=== PATIENT | male | born 1980 | race Hispanic/Latino ===

== ENCOUNTER 2023-07-08 13:50 | Emergency (ER) | payer OTHER ==
--- OUTSIDE RECORDS SUMMARY | 2023-07-08 13:58 | XMS REPORT | Continuity of Care Document ---
:1980 Author Organization [facility] t Address [address] [facility] [address] [place] [address] Care Team Providers Name Role Phone PCP, PATIENT DOES NOT HAVE A Primary Care Physician Unavaila Kelsi Lowery Attending Clinician Unavailable Kelsi Diallo Attending Clinician Flaco Bishop Attending Clinician FLACO LESTER Attending Clinician Unavailable Payers Payer Name Policy Type Policy Number Effective Date Expiration Date S eleuterio [facility] [id number] 2022 HEALTHCARE 00:00:00 Problems Condition Condition Condition Status Onset Resolution Last Treating Co mments Source Name Details Category Date Date Treatment Clinician Date No known No known Disease Unive rs active active ity of problems problems [facility] [place] Allergies, Adverse Reactions, Alerts Allergy Allergy Status Severity Reaction(s) Onset Inactive Treating Comm ents Source Name Type Date Date Clinician NO KNOWN Drug Active Univers ALLERGIE Class ity of S [facility] [place] Social History Social Habit Start Date Stop Date Quantity Comments Source Exposure to 2022-12-16 2022-12-26 Not sure [facility] SARS-CoV-2 (event) 00:00:00 13:30:00 Medica l Branch Sex Ass[birth year] [facility] 00:00:00 00:00:00 Medical Branch Smoking Status Start Date Stop Date Source Tobacco smoking consumption Univ [facility] Medical unknown Branch Medications Ordered Filled Start Stop Current Ordering Indication Dosage Frequency Signature Comments Components Source Medication Medication Date Date Medication? Clinician (SIG) Name Name acetaminoph 2022- No 1000mg 1,000 mg, Univers en 12-26 Oral, ity of (TYLENOL) 21:30: 21:32 ONCE, 1 [place] tablet [place] :[place] dose, On Medical 1,000 mg Fri Branch 12/26/22 at 1530, SUMAN benzonatate 0 Yes [id number] 200mg Take 1 Univers 200 mg 12-26 capsule by ity of capsule 00:00: mouth 3 [place] 00 (three) Medical times Branch daily as needed for Cough for up to 20 doses. ondansetron Yes [id number] 4mg Take 1 Univers 4 mg -27 tablet by ity of disintegrat 00:00: mouth [place] ing tablet 00 every 8 Medica l (eight) Branch hours as needed for Nausea and Vomiting (N/V). ibuprofen 0 Yes [id number] 600mg Take 1 Univers 600 mg -27 tablet by ity of tablet 00:00: mouth [place] 00 every 6 Medical (six) Branch hours as needed for Pain (scale 4-6). sulfamethox Yes [id number] 1{tbl} Take 1 Univers azole-trime 6-08 tablet by ity of thoprim 00:00: mouth [place] 800-160 mg 00 every 12 Medic al per tablet (twelve) Branc h hours. traMADOL Yes [id number] 50mg Take 1 Uni vers (ULTRAM) 50 6-08 tablet by ity of mg tablet 00:00: mouth [place] 00 every 8 Medical (eight) Branch hours as needed for Pain (scale 4-6). sulfamethox Yes [id number] 1{tbl} Take 1 Univers azole-trime 6-08 tablet by ity of thoprim 00:00: mouth [place] 800-160 mg 00 every 12 Medic al per tablet (twelve) Branc h hours. traMADOL 2018- Yes [id number] 50mg Take 1 Uni vers (ULTRAM) 50 6-08 tablet by ity of mg tablet 00:00: mouth [place] 00 every 8 Medical (eight) Branch hours as needed for Pain (scale 4-6). hydrOXYzine Yes [id number] 50mg Take 1 Univers 50 mg 4-06 capsule by ity of capsule 00:00: mouth 3 (three) Medical times [place] daily as needed for Anxiety. hydrOXYzine 2019-0 Yes [id number] 50mg Take 1 Univers 50 mg 4-06 capsule by ity of capsule 00:00: mouth 3 (three) Medical times [place] daily as needed for Anxiety. Vital Signs Vital Name Observation Time Observation Value Comments Source Systolic blood 2022-12-26 19:27:00 138 mm[Hg] [facility]iver [facility] Diastolic blood 2022-12-26 19:27:00 90 mm[Hg] Unive rs[facility] of [facility] Heart rate 2022-12-26 19:27:00 99 /min Universi ty of [facility] Body temperature 2022-12-26 19:27:00 37.22 Radha [facility] [place] [facility] ersity [facility] Respiratory rate 2022-12-26 19:27:00 24 /min [facility] [place] [facility] ersity [facility] Body height 2022-12-26 19:27:00 165.1 cm Universi ty of [facility] Body weight 2022-12-26 19:27:00 83.915 kg Universi ty of [facility] BMI 2022-12-26 19:27:00 30.79 kg/m2 Universi ty [facility] Oxygen saturation in 2022-12-26 19:27:00 99 /min [facility] blood by [facility] Pulse oximetry [place] Systolic blood 2022-12-08 16:07:33 136 mm[Hg] Univer sity of [facility] Diastolic blood 2022-12-08 16:07:33 98 mm[Hg] Unive rsity of [facility] Heart rate 2022-12-08 16:07:33 67 /min Universi ty of [facility] Body temperature 2022-12-08 16:07:33 37.11 Radha [facility] [place] [facility] ersity [facility] Respiratory rate 2022-12-08 16:07:33 18 /min [facility] [place] [facility] ersity [facility] Body height 2022-12-08 15:22:00 165.1 cm Universi ty of [facility] Body weight 2022-12-08 15:22:00 74.844 kg Universi ty of [facility] BMI 2022-12-08 15:22:00 27.46 kg/m2 Universi ty of [facility] Oxygen saturation in 2022-12-08 15:22:00 100 /min University Arterial blood by [facility] Pulse oximetry Branch Procedures Procedure Date / Time Performed Performing Clinician Sour e RAPID STREP SCREEN 2022-12-26 20:42:00 Kelsi Kumar [facility] FOR GROUP A Medical Branch RAPID INFLUENZA A/B 2022-12-26 20:42:00 Kelsi Kmuar [facility] ty of [facility] COVID-19 (ID NOW 2022-12-26 20:42:00 Kelsi Kumar [facility] RAPID TESTING) Medical Branch CONSENT/REFUSAL FOR 2022-12-26 19:21:51 Doctor Unassigned, No [facility] [place] DIAGNOSIS AND Name Medical Branch TREATMENT CONSENT/REFUSAL FOR 2022-12-08 15:09:47 Doctor Unassigned, No [facility] [place] DIAGNOSIS AND Name Medical Branch TREATMENT Encounters Start End Encounter Admission Attending Care Care Encounter Source Date/Time Date/Time Type Type Clinicians Facility Department ID 2022-12-26 2022-12-26 Emergency X MER Kelsi [facility] ERT [id number] Univers 13:28:00 15:38:00 ity of [facility] 2022-12-26 2022-12-26 Emergency Kelsi Kumar [facility] [id number] Univers 13:28:00 15:38:00 Michelle URENA [id number] i ty of [place] [id number] [facility] [id number] [place] [address] Branch 2022-12-08 2022-12-08 [facility] [id number] Univers 09:23:00 10:08:00 Flaco URENA [id number] ity of [place] [id number] [facility] [phone] [place] [address] Branch 2022-12-08 2022-12-08 Emergency [facility] [id number] Univers 09:23:00 10:08:00 FLACO ity of [facility] 2020-01-26 2020-01-26 Emergency X [facility] ERT [id number] Univers 17:43:00 17:43:00 [facility] Results This patient has no known results.
[2023-07-08] MEDS ORDERED: TDAP (DIPHTH,PERTUSS(ACELL),TET VAC) 0.5 ML VIAL IMVAC ONE (15:42)
[2023-07-08] MEDS ORDERED: IBUPROFEN 400 MG TAB ONE (15:42)
--- NOTE | 2023-07-08 16:01 | RAD REPORT ---
EXAM DESCRIPTION: RAD - Hand Right 2 View - 07/08/2023 3:44 pm CLINICAL HISTORY: swelling, nail puncture COMPARISON: No comparisons FINDINGS: No acute fracture. No malalignment. No significant focal degenerative changes. IMPRESSION: No acute osseous abnormality involving the right hand. No radiopaque foreign body.
[2023-07-08] MEDS ORDERED: DOXYCYCLINE 100 MG CAP PO ONE (16:03)
[2023-07-08] MEDS ORDERED: SMZ./TMP. 800/160 MG TABLET ONE (16:03)
--- NOTE | 2023-07-08 16:20 | ER ---
Nurse's Notes [facility] Name: José Cole Age: 42 yrs Sex: Male : 1980 Arrival Date: 07/08/2023 Time: 13:50 Bed 12 Private MD: Diagnosis: Cellulitis of finger;Cellulitis of right finger;Pain in right finger(s);Puncture wound without foreign body of hand Presentation: 07/08 14:37 Chief complaint: Patient states: 2 days ago he reached in his tool pouch and 2 nails cm10 punctured his right index finger. Pt has noted swelling ot right index fingers. Last tetanus 1 year ago. Coronavirus screen: Vaccine status: Patient reports receiving the 2nd dose of the covid vaccine. Coronavirus screen: Vaccine status:. Ebola Screen: Patient denies travel to an Ebola-affected area in the 21 days before illness onset. No symptoms or risks identified at this time. Initial Sepsis Screen: Does the patient meet any 2 criteria? No. Patient's initial sepsis screen is negative. Does the patient have a suspected source of infection? No. Patient's initial sepsis screen is negative. Risk Assessment: Do you want to hurt yourself or someone else? Patient reports no desire to harm self or others. Onset of symptoms was July 06, 2023. 14:37 Method Of Arrival: Ambulatory cm10 14:37 Acuity: ALEX 4 cm10 Historical: - Allergies: 14:39 No Known Allergies; cm10 - Home Meds: 14:39 None [Active]; cm10 - PMHx: 14:39 None; cm10 - PSHx: 14:39 None; cm10 - Immunization history:: Adult Immunizations up to date. - Social history:: Smoking status: Patient reports the use of cigarette tobacco products, denies chronic smoking, but will smoke occasionally. Screenin:39 [facility] ED Fall Risk Assessment (Adult) History of falling in the last 3 months, mb9 including since admission No falls in past 3 months (0 pts) Confusion or Disorientation No (0 pts) Intoxicated or Sedated No (0 pts) Impaired Gait No (0 pts) Mobility Assist Device Used No (0 pt) Altered Elimination No (0 pt) Score/Fall Risk Level 0 - 2 = Low Risk Oriented to surroundings, Maintained a safe environment, Educated pt \T\ family on fall prevention, incl call for assistance when getting out of bed. Abuse screen: Denies threats or abuse. Nutritional screening: No deficits noted. Tuberculosis screening: No symptoms or risk factors identified. Assessment: 15:38 General: Appears in no apparent distress. Behavior is calm, cooperative. Pain: Denies mb9 pain. Neuro: Calderón Agitation-Sedation Scale (RASS): 0 - Alert and Calm Level of Consciousness is awake, alert, obeys commands, Oriented to person, place, time, situation, Appropriate for age. Cardiovascular: Patient's skin is warm and dry. Respiratory: Airway is patent Respiratory effort is even, unlabored, Respiratory pattern is regular, symmetrical. Derm: Skin is pink, warm \T\ dry. Musculoskeletal: Range of motion: intact in all extremities, Swelling present in right index finger. 16:51 Reassessment: No changes from previously documented assessment. Patient and/or family mb9 updated on plan of care and expected duration. Pain level reassessed. Patient is alert, oriented x 3, equal unlabored respirations, skin warm/dry/pink. Vital Signs: 14:37 BP 151 / 94; Pulse 85; Resp 18; Temp 97.9(TE); Pulse Ox 97% on R/A; Weight 77.11 kg; cm10 Height 5 ft. 5 in. ; Pain 6/10; 15:57 BP 123 / 93; Pulse 74; Resp 16; Pulse Ox 100% on R/A; mb9 14:37 Body Mass Index 28.29 (77.11 kg, 165.1 cm) cm10 14:37 Pain Scale: Adult cm10 ED Course: 13:53 Patient arrived in ED. mg5 14:17 Anuradha Espitia FNP-C is PHCP. snw 14:17 Kasie Ramesh MD is Attending Physician. snw 14:39 Triage completed. cm10 14:40 Arm band placed on Patient placed in waiting room. cm10 14:58 Page David MD is Attending Physician. cp3 15:28 Gifty Brower, HÉCTOR is Primary Nurse. mb9 15:39 Bed in low position. Call light in reach. Side rails up X 1. Client placed on mb9 continuous cardiac and pulse oximetry monitoring. NIBP monitoring applied. 15:45 Hand Right 2 View XRAY In Process Unspecified. EDMS 16:16 Delfino, Alistair, MD is Referral Physician. cp3 16:52 No provider procedures requiring assistance completed. Patient did not have IV access mb9 during this emergency room visit. 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 mb9 Exp: 12/17/2023. Lot #: [id number]. } Route: IM; Site: right deltoid; 15:41 Not Given (Other Intervention Used): Clindamycin IM 600 mg IM once mb9 15:53 Drug: Trimethoprim-Sulfamethoxazole PO (160 mg-800 mg (DS) 1 tablet Route: PO; mb9 15:53 Drug: Doxycycline PO 100 mg Route: PO; mb9 15:53 Drug: Bacitracin Topical Ointment (500 unit/g) 1 application Route: Topical; Site: mb9 affected area; Medication: 15:39 VIS not applicable for this client. mb9 Outcome: 16:19 Discharge ordered by . cp3 16:51 Discharged to home ambulatory. mb9 16:51 Condition: stable 16:51 Discharge instructions given to patient, Instructed on discharge instructions, follow up and referral plans. Demonstrated understanding of instructions, follow-up care, medications, Prescriptions given X 4. 16:52 Patient left the ED. mb9 Signatures: Dispatcher [employer] EDVA Anuradha Espitia, LADIES UNDERWEAR OPERATOR-C LADIES UNDERWEAR OPERATOR-Csnw Page David MD MD cp3 Gifty Brower RN RN mb9 Nalini Carcamo RN RN cm10 Denise Borrego 5
--- NOTE | 2023-07-08 16:20 | EDPHYS ---
Physician Documentation [facility] Name: José Cole Age: 42 yrs Sex: Male : 1980 Arrival Date: 07/08/2023 Time: 13:50 Bed 12 Private MD: ED Physician Page David HPI: 07/08 16:38 This 42 yrs old Male presents to ER via Ambulatory with complaints of Finger cp3 Injury - Swelling, Right. Historical: - Allergies: 14:39 No Known Allergies; cm10 - Home Meds: 14:39 None [Active]; cm10 - PMHx: 14:39 None; cm10 - PSHx: 14:39 None; cm10 - Immunization history:: Adult Immunizations up to date. - Social history:: Smoking status: Patient reports the use of cigarette tobacco products, denies chronic smoking, but will smoke occasionally. Vital Signs: 14:37 BP 151 / 94; Pulse 85; Resp 18; Temp 97.9(TE); Pulse Ox 97% on R/A; Weight 77.11 kg; cm10 Height 5 ft. 5 in. ; Pain 6/10; 15:57 BP 123 / 93; Pulse 74; Resp 16; Pulse Ox 100% on R/A; mb9 14:37 Body Mass Index 28.29 (77.11 kg, 165.1 cm) cm10 14:37 Pain Scale: Adult cm10 MDM: 14:41 Patient medically screened. snw 16:39 Data reviewed: vital signs, nurses notes. 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 mb9 Exp: 12/17/2023. Lot #: [id number]. } Route: IM; Site: right deltoid; 15:41 Not Given (Other Intervention Used): Clindamycin IM 600 mg IM once mb9 15:53 Drug: Trimethoprim-Sulfamethoxazole PO (160 mg-800 mg (DS) 1 tablet Route: PO; mb9 15:53 Drug: Doxycycline PO 100 mg Route: PO; mb9 15:53 Drug: Bacitracin Topical Ointment (500 unit/g) 1 application Route: Topical; Site: mb9 affected area; Disposition Summary: 07/08/23 16:19 Discharge Ordered Location: Home cp3 Condition: Stable cp3 Problem: new cp3 Symptoms: have worsened cp3 Diagnosis - Cellulitis of finger cp3 - Cellulitis of right finger cp3 - Pain in right finger(s) cp3 - Puncture wound without foreign body of hand cp3 Followup: cp3 - With: Alistair Saleh MD - When: - Reason: Recheck today's complaints Discharge Instructions: - Discharge Summary Sheet cp3 - Cellulitis, Adult cp3 - Fingertip Infection cp3 Forms: - Medication Reconciliation Form cp3 - Thank You Letter cp3 - Antibiotic Education cp3 - Prescription Opioid Use cp3 - Patient Portal Instructions cp3 Prescriptions: - Ibuprofen 600 mg Oral Tablet - take 1 tablet by ORAL route every 6 hours As needed take with food; 30 tablet; cp3 Refills: 0, Product Selection Permitted - Doxycycline Hyclate 100 mg Oral Tablet - take 1 tablet by ORAL route once daily; 10 tablet; Refills: 0, Product cp3 Selection Permitted - Cyclobenzaprine 10 mg Oral Tablet - take 1 tablet by ORAL route every 8 hours As needed; 30 tablet; Refills: 0, cp3 Product Selection Permitted - Bactrim DS 800-160 mg Oral Tablet - take 1 tablet by ORAL route every 12 hours for 10 days; 20 tablet; Refills: 0, cp3 Product Selection Permitted Signatures: Dispatcher [employer] Anuradha Walker FNP-C FNP-Page Ramsey MD MD cp3 Gifty Brower RN RN mb9 Nalini Carcamo RN RN cm10
[2023-07-08 17:36] VITALS: TEMP 97.9
[2023-07-08 17:38] VITALS: BP 123/93; O2SAT 100
== END 2023-07-08 16:52 | disposition home or self-care (01) ==
LOC: ER 13:50
DX: L03.011 Cellulitis of right finger (principal); S61.431A Puncture wound without foreign body of right hand, initial encounter; Z23 Encounter for immunization; F17.210 Nicotine dependence, cigarettes, uncomplicated